=== PATIENT | male | born 1970 | race African-American/Black ===

== ENCOUNTER 2017-06-07 10:09 | Inpatient (IN) | payer BC, OTHER ==
[~2017-06-07] VITALS: Ht 180.3 cm; Wt 63.5 kg
[2017-06-07] MEDS ORDERED: ACETAMINOPHEN 325 MG TABLET PO PRN (12:00)
[2017-06-07] MEDS ORDERED: MAGNESIUM HYDROXIDE 30 ML LIQUID UDC PO PRN (12:00)
[2017-06-07] MEDS ORDERED: IBUPROFEN 400 MG TABLET PO PRN (12:00)
[2017-06-07] MEDS ORDERED: ONDANSETRON ODT 4 MG TAB.RAPDIS SL PRN (12:00)
[2017-06-07] MEDS ORDERED: MAG HYDROX/AL HYDROX/SIMETH 30 ML LIQUID UDC PO PRN (12:00)
[2017-06-07] MEDS ORDERED: LORAZEPAM 2 MG/1 ML VIAL IM PRN (12:00)
[2017-06-07] MEDS ORDERED: DICYCLOMINE HCL 20 MG TABLET PO PRN (12:00)
[2017-06-07] MEDS ORDERED: HYDROXYZINE PAMOATE 25 MG CAPSULE PO PRN (12:00)
[2017-06-07] MEDS ORDERED: ONDANSETRON 4 MG/2 ML VIAL IM PRN (12:00)
[2017-06-07] MEDS ORDERED: MIRALAX 17 GM POWD.PACK PO PRN (12:00)
[2017-06-07] MEDS ORDERED: LORAZEPAM 1 MG TABLET PO PRN ×2 (12:00)
[2017-06-07] MEDS ORDERED: LOPERAMIDE HCL 2 MG CAPSULE PO PRN ×2 (12:00)
[2017-06-07] MEDS ORDERED: THIAMINE HCL 200 MG/2 ML VIAL IM ONE (12:00)
[2017-06-07] MEDS ORDERED: CLONIDINE HCL 0.1 MG TABLET PO PRN (12:00)
[2017-06-07 12:25] VITALS: BP 124/65
[2017-06-07 13:42] LABS: ETHANOL < 3 MG/DL (0-0)
[2017-06-07 13:43] LABS: BASOPHILS % (AUTO) 0.6 % (0.0-2.0); EOSINOPHILS # (AUTO) 0.3 K/uL (0.0-0.7); EOSINOPHILS % (AUTO) 4.8 % (0.0-7.0); LYMPHOCYTES # (AUTO) 2.3 K/uL (20.0-40.0); LYMPHOCYTES % (AUTO) 36.9 % (20.5-51.5); MEAN CORPUSCULAR HGB CONC 35 g/dL (32.5-36.3); MONOCYTES # (AUTO) 0.4 K/uL (2.0-10.0); MONOCYTES % (AUTO) 5.8 % (0.0-11.0); NEUTROPHILS # (AUTO) 3.2 K/uL (1.8-8.9); NEUTROPHILS % (AUTO) 51.9 % (38.5-71.5)
[2017-06-07 13:47] LABS: ALANINE AMINOTRANSFERASE 16 U/L (16-63); ALKALINE PHOSPHATASE 93 U/L (50-136); AMYLASE 91 U/L (25-115); ASPARTATE AMINOTRANSFERASE 12 U/L (15-37); BILIRUBIN,TOTAL 0.8 mg/dL (0.2-1.0); CARBON DIOXIDE 35 mmol/L (21-32); CHLORIDE 102 mmol/L (98-107); CREATININE 1.1 mg/dL (0.6-1.3); GLUCOSE 95 mg/dL (74-106); LIPASE 547 U/L (73-393); MAGNESIUM 2.2 mg/dL (1.8-2.4); POTASSIUM 4.2 mmol/L (3.5-5.1); TOTAL PROTEIN, SERUM 8.3 g/dL (6.4-8.2); UREA NITROGEN, BLOOD 13 mg/dL (7-18)
[2017-06-07 13:54] LABS: HEMATOCRIT 47.7 % (36.7-47.1); HEMOGLOBIN 16.7 g/dL (12.5-16.3); MEAN CORPUSCULAR VOLUME 96.8 fL (73.0-96.2); RED BLOOD CELL COUNT(AUTO) 4.92 MIL/uL (4.06-5.63); WHITE BLOOD COUNT (AUTO) 6.2 K/uL (3.6-10.2)
[2017-06-07 13:55] LABS: MEAN CORPUSCULAR HEMOGLOBIN 33.9 uug (23.8-33.4); PLATELET COUNT (AUTO) 265 K/uL (152-348)
[2017-06-07 16:00] VITALS: BP 129/74
[2017-06-07 18:11] LABS: *AMPHETAMINE, URINE NEGATIVE (NEGATIVE); *BARBITURATE, URINE NEGATIVE (NEGATIVE); *CANNABINOID, URINE POSITIVE (NEGATIVE); *COCCAINE, URINE NEGATIVE (NEGATIVE); *OPIATE, URINE NEGATIVE (NEGATIVE); *PHENCYCLIDINE SCREEN,URINE NEGATIVE (NEGATIVE)
[2017-06-07 20:00] VITALS: BP 137/77
[2017-06-07] MEDS: diphenhydrAMINE 50 MG CAPSULE PO PRN (21:05)
[2017-06-08] VITALS: BP 97/78
[2017-06-08 04:00] VITALS: BP 113/62
[2017-06-08 08:00] VITALS: BP 146/89
[2017-06-08] MEDS: THIAMINE HCL 100 MG TABLET PO SCH (08:52)
[2017-06-08] MEDS: LORAZEPAM 1 MG TABLET PO SCH ×4 (08:53→21:32)
[2017-06-08] MEDS: FOLIC ACID 1 MG TABLET PO SCH (08:53)
[2017-06-08] MEDS: MULTIVITAMINS,THERAPEUTIC TABLET PO SCH (08:53)
[2017-06-08] MEDS ORDERED: DOCUSATE SODIUM 250 MG CAPSULE PO SCH (09:00)
[2017-06-08] MEDS ORDERED: TUBERCULIN,PURIF.PROT.DERIV. 5 TU/0.1 ML TEST ID ONE (09:00)
[2017-06-08] MEDS ORDERED: 5 DAY TAPER OF LORAZEPAM -SERENITY PROTOCOL PO PRN (09:00)
[2017-06-08 09:07] LABS: HEPATITIS B SURFACE AG Negative (Negative)
[2017-06-08 12:00] VITALS: BP 128/86
[2017-06-08 16:00] VITALS: BP 121/79
[2017-06-08 20:00] VITALS: BP 126/80
[2017-06-08] MEDS: diphenhydrAMINE 50 MG CAPSULE PO PRN (21:32)
[2017-06-09] VITALS: BP 122/73
[2017-06-09 08:26] VITALS: BP 132/92
[2017-06-09] MEDS: THIAMINE HCL 100 MG TABLET PO SCH (08:50)
[2017-06-09] MEDS: FOLIC ACID 1 MG TABLET PO SCH (08:50)
[2017-06-09] MEDS: LORAZEPAM 1 MG TABLET PO SCH ×2 (08:50→16:40)
[2017-06-09] MEDS: MULTIVITAMINS,THERAPEUTIC TABLET PO SCH (08:50)
[2017-06-09] MEDS ORDERED: LORAZEPAM 1 MG TABLET PO SCH ×2 (09:00→21:00)
[2017-06-09 12:30] VITALS: BP 124/87
[2017-06-09 16:45] VITALS: BP 122/96
[2017-06-09] MEDS ORDERED: LORAZEPAM 1 MG TABLET PO PRN ×2 (17:00)
[2017-06-09 20:00] VITALS: BP 122/95
[2017-06-09] MEDS: diphenhydrAMINE 50 MG CAPSULE PO PRN (21:23)
[2017-06-09] MEDS: GABAPENTIN 300 MG CAPSULE PO SCH (21:23)
[2017-06-10 08:00] VITALS: BP 135/95
[2017-06-10] MEDS ORDERED: LORAZEPAM 1 MG TABLET PO SCH ×2 (09:00)
[2017-06-10] MEDS: GABAPENTIN 300 MG CAPSULE PO SCH ×2 (09:07→21:09)
[2017-06-10] MEDS: MULTIVITAMINS,THERAPEUTIC TABLET PO SCH (09:07)
[2017-06-10] MEDS: LORAZEPAM 1 MG TABLET PO SCH ×2 (09:07→21:09)
[2017-06-10] MEDS: THIAMINE HCL 100 MG TABLET PO SCH (09:07)
[2017-06-10] MEDS: FOLIC ACID 1 MG TABLET PO SCH (09:07)
[2017-06-10 12:00] VITALS: BP 130/90
[2017-06-10 16:00] VITALS: BP 128/85
[2017-06-10 20:00] VITALS: BP 141/91
[2017-06-10] MEDS: diphenhydrAMINE 50 MG CAPSULE PO PRN (22:17)
[2017-06-11 08:00] VITALS: BP 130/86
[2017-06-11] MEDS: GABAPENTIN 300 MG CAPSULE PO SCH ×2 (08:10→21:13)
[2017-06-11] MEDS: FOLIC ACID 1 MG TABLET PO SCH (08:10)
[2017-06-11] MEDS: MULTIVITAMINS,THERAPEUTIC TABLET PO SCH (08:10)
[2017-06-11] MEDS: THIAMINE HCL 100 MG TABLET PO SCH (08:10)
[2017-06-11] MEDS ORDERED: LORAZEPAM 1 MG TABLET PO SCH ×2 (09:00)
[2017-06-11 12:00] VITALS: BP 131/99
[2017-06-11] MEDS ORDERED: DIPH50CA37 PO (14:05)
[2017-06-11] MEDS ORDERED: GABA-534 PO (14:05)
[2017-06-11] MEDS ORDERED: CLON0.1T14 PO (14:05)
[2017-06-11 16:00] VITALS: BP 134/83
[2017-06-11 20:00] VITALS: BP 149/98
[2017-06-11] MEDS: diphenhydrAMINE 50 MG CAPSULE PO PRN (21:13)
[2017-06-12] VITALS: BP 131/90
[2017-06-12 04:00] VITALS: BP 119/78
[2017-06-12 08:00] VITALS: BP 141/89
[2017-06-12] MEDS: FOLIC ACID 1 MG TABLET PO SCH (08:31)
[2017-06-12] MEDS: MULTIVITAMINS,THERAPEUTIC TABLET PO SCH (08:31)
[2017-06-12] MEDS: GABAPENTIN 300 MG CAPSULE PO SCH (08:31)
[2017-06-12] MEDS: THIAMINE HCL 100 MG TABLET PO SCH (08:31)
[2017-06-12] MEDS ORDERED: LORAZEPAM 1 MG TABLET PO SCH (09:00)
== END 2017-06-12 09:25 | disposition other institution (70) | DRG 895 ==
LOC: SRC 11:03
PROVIDERS: ADMIT Internal Medicine; ATTEND Internal Medicine
PROC: HZ2ZZZZ Detoxification Services for Substance Abuse Treatment (ICD-10-PCS; principal; 2017-06-07)
PROC: HZ41ZZZ Group Counseling for Substance Abuse Treatment, Behavioral (ICD-10-PCS; 2017-06-08)
PROC: HZ31ZZZ Individual Counseling for Substance Abuse Treatment, Behavioral (ICD-10-PCS; 2017-06-10)
DX: F10.232 Alcohol dependence with withdrawal with perceptual disturbance (principal); K85.20 Alcohol induced acute pancreatitis without necrosis or infection; E87.3 Alkalosis; Y90.0 Blood alcohol level of less than 20 mg/100 ml; E86.0 Dehydration; F12.10 Cannabis abuse, uncomplicated; F60.9 Personality disorder, unspecified; I15.9 Secondary hypertension, unspecified; Z62.810 Personal history of physical and sexual abuse in childhood; F29 Unspecified psychosis not due to a substance or known physiological condition; F39 Unspecified mood [affective] disorder
CPT/HCPCS: 36415; 70030-TC; 71045; 80307; 80349; 83690; 83735; 85025; 86580; 86592; 86705; 86803; 87340; 87806; A4663; G0480; J3411; Q0162; Q0163